=== PATIENT | male | born 1970 | race African-American/Black ===

== ENCOUNTER 2017-07-04 11:52 | Emergency (ER) | payer SELFPAY ==
[~2017-07-04] VITALS: Ht 185.4 cm; Wt 82.0 kg
[2017-07-04] MEDS ORDERED: LORAZEPAM 1MG TABLET PO ONE (15:15)
[2017-07-04] MEDS ORDERED: DEXAMETHASONE 10 MG/ML VIAL IM SCH (15:15)
[2017-07-04] MEDS ORDERED: KETOROLAC 60MG/2ML VIAL IM ONE (15:15)
[2017-07-04 15:59] VITALS: BP 137/99
== END 2017-07-04 16:07 | disposition home or self-care (01) ==
LOC: ER 11:52
DX: M54.30 Sciatica, unspecified side (principal); F12.10 Cannabis abuse, uncomplicated
CPT/HCPCS: 96372; 99284; J1100; J1885